=== PATIENT | female | born 2000 | race Caucasian/White ===

== ENCOUNTER 2025-05-24 03:24 | Outpatient (CLI) | payer OTHER, SELFPAY ==
[2025-05-24 11:01] LABS: Abs Immature Grans 0.03 10^3/uL (0.0-0.06); HCT 35.6 % (36.0-46.0); HGB 12.4 g/dL (11.2-15.7); Immature Grans % 0.3 %; MCH 30.0 pg (27.0-33.0); MCHC 34.8 % (32.0-36.0); MCV 86 fL (80-95); MPV 9.8 fL (8.0-11.0); Platelet Count 225 10^3/uL (130-400); RBC 4.13 10^6/uL (3.93-5.22); RDW 11.6 % (11.7-14.6); RDW-SD 36.5 fL; WBC 9.47 10^3/uL (4.4-10.8)
[2025-05-25 10:07] LABS: Hepatitis C Ab w Rflx HCV PCR Negative (Negative)
[2025-05-25 10:28] LABS: HIV-1/2 Ag & Ab Screen Negative (Negative)
[2025-05-25 10:51] LABS: Rubella IgG Ab (UVM) Positive (See Note)
[2025-05-26 19:44] LABS: Syphilis IgG w/Reflex Nonreactive (Nonreactive)
== END 2025-05-24 03:25 | disposition home or self-care (01) ==
LOC: LBO 03:24
PROVIDERS: Visit Provider Advanced Practice Midwife
DX: Z34.91 Encounter for supervision of normal pregnancy, unspecified, first trimester (principal)
CPT/HCPCS: 36415; 81220; 81222; 81329; 86787; 86803; 86850; 86900; 86901; 87340; 87389; 85025; 86762; 86780

== ENCOUNTER 2025-05-24 10:26 | Outpatient (REF) | payer OTHER, SELFPAY ==
[2025-05-25 14:09] LABS: Chlamydia Result Negative (Negative); GC Result Negative (Negative)
== END 2025-05-24 10:27 | disposition home or self-care (01) ==
LOC: LBN 10:26
PROVIDERS: Visit Provider Advanced Practice Midwife
DX: Z34.91 Encounter for supervision of normal pregnancy, unspecified, first trimester (principal)
CPT/HCPCS: 87491; 87591; 87086